=== PATIENT | male | born 1970 | race Caucasian/White ===

== ENCOUNTER 2017-12-06 10:25 | Day surgery (SDC) | payer MEDICAID, OTHER ==
[~2017-12-06] VITALS: Ht 185.4 cm; Wt 106.1 kg
--- NOTE | 2017-12-06 10:39 | ED Chest Pain ---
General Chief Complaint: Chest Pain Stated Complaint: CP Source: patient Exam Limitations: no limitations History of Present Illness Date Seen by Provider: Dec 06, 2017 Time Seen by Provider: 10:38 Initial Comments Ambulatory to ER with reports of chest pain. He is not currently having chest pain but he did have chest pain this morning. He was seen at his primary care provider's office, Dr. Gaffney who referred him here. He was given [address] Gaffney's office. He's been having chest pain for about one week. He associated with activity. Yesterday while running the [place] he had chest pain described as chest tightness and hard to breathe. He had to quit running the [place] because of the chest pain. He also has chest pain with walking or physical exertion. He has no known history of coronary artery disease. He is a diabetic. He is a smoker. Timing/Duration: intermittent Severity/Quality: tightness Location: central Radiation: no radiation Activities at Onset: none Allergies and Home Medications Allergies Coded Allergies: No Known Drug Allergies (Unverified , 12/06/17) Home Medications Unable to Obtain Active Prescriptions or Reported Meds Patient Home Medication List Home Medication List Reviewed: Yes Review of Systems Constitutional: see HPI EENTM: No Symptoms Reported Respiratory: No Symptoms Reported Cardiovascular: See HPI, Chest Pain Gastrointestinal: No Symptoms Reported Genitourinary: No Symptoms Reported (() Musculoskeletal: no symptoms reported Skin: no symptoms reported Psychiatric/Neurological: No Symptoms Reported Endocrine: No Symptoms Reported Past Hsmuszp-Vchwhl-Letazk Hx Patient Social History Recent Foreign Travel: No Contact w/Someone Who Travel: No Physical Exam Vital Signs Vital Signs - First Documented 12/06/17 12/06/17 10:30 10:35 Temp 98.0 Pulse 74 Resp 20 B/P (MAP) 110/59 (76) Pulse Ox 98 O2 Delivery Room Air Capillary Refill : General Appearance: No Apparent Distress, WD/WN, Other (Denies chest pain at this time though he is ashen and diaphoretic. While I was in the room examining the patient he did have a 4.5 half second pause. Blood pressure is adequate at 108/44, this was brief, heart rate increased to 61.) HEENT: PERRL/EOMI, TMs Normal Neck: Full Range of Motion, Normal Inspection Respiratory: Normal Breath Sounds, No Accessory Muscle Use, No Respiratory Distress Cardiovascular: Regular Rate, Rhythm, Normal Peripheral Pulses Gastrointestinal: Non Tender, Soft Extremity: Normal Capillary Refill, Normal Inspection Neurologic/Psychiatric: Alert, Oriented x3 Skin: Normal Color, Warm/Dry Progress/Results/Core Measures Lab Results Laboratory Tests Test 12/06/17 10:36 Range/Units White Blood Count 7.1 4.3-11.0 10^3/uL Red Blood Count 5.19 4.35-5.85 10^6/uL Hemoglobin 16.3 13.3-17.7 G/DL Hematocrit 46 40-54 % Mean Corpuscular Volume 88 80-99 FL Mean Corpuscular Hemoglobin 31 25-34 PG Mean Corpuscular Hemoglobin Concent 36 32-36 G/DL Red Cell Distribution Width 13.7 10.0-14.5 % Platelet Count 253 130-400 10^3/uL Mean Platelet Volume 10.4 7.4-10.4 FL Neutrophils (%) (Auto) 55 42-75 % Lymphocytes (%) (Auto) 32 12-44 % Monocytes (%) (Auto) 10 0-12 % Eosinophils (%) (Auto) 3 0-10 % Basophils (%) (Auto) 1 0-10 % Neutrophils # (Auto) 3.9 1.8-7.8 X 10^3 Lymphocytes # (Auto) 2.3 1.0-4.0 X 10^3 Monocytes # (Auto) 0.7 0.0-1.0 X 10^3 Eosinophils # (Auto) 0.2 0.0-0.3 10^3/uL Basophils # (Auto) 0.1 0.0-0.1 10^3/uL Prothrombin Time 13.4 12.2-14.7 SEC INR Comment 1.0 0.8-1.4 Activated Partial Thromboplast Time 30 24-35 SEC Sodium Level 139 135-145 MMOL/L Potassium Level 4.1 3.6-5.0 MMOL/L Chloride Level 105 98-107 MMOL/L Carbon Dioxide Level 25 21-32 MMOL/L Anion Gap 9 5-14 MMOL/L Blood Urea Nitrogen 8 7-18 MG/DL Creatinine 0.89 0.60-1.30 MG/DL Estimat Glomerular Filtration Rate > 60 BUN/Creatinine Ratio 9 Glucose Level 105 70-105 MG/DL Calcium Level 9.5 8.5-10.1 MG/DL Magnesium Level 2.2 1.8-2.4 MG/DL Total Bilirubin 1.0 0.1-1.0 MG/DL Aspartate Amino Transf (AST/SGOT) 31 5-34 U/L Alanine Aminotransferase (ALT/SGPT) 31 0-55 U/L Alkaline Phosphatase 60 40-136 U/L Myoglobin 87.3 10.0-92.0 NG/ML Troponin I 2.18 *H <0.30 NG/ML Total Protein 7.1 6.4-8.2 GM/DL Albumin 4.5 3.2-4.5 GM/DL My Orders Orders - AMBROSIO OCONNOR ACCOUNTING OFFICE MANAGER Cbc With Automated Diff (12/06/17 10:49) Magnesium (12/06/17 10:49) Chest 1 View, Ap/Pa Only (12/06/17 10:49) Ekg Tracing (12/06/17 10:49) Cardiac Profile 1 (12/06/17 10:49) Comprehensive Metabolic Panel (12/06/17 10:49) Myoglobin Serum (12/06/17 10:49) Protime With Inr (12/06/17 10:49) Partial Thromboplastin Time (12/06/17 10:49) O2 (12/06/17 10:49) Monitor-Rhythm Ecg Trace Only (12/06/17 10:49) Lipid Panel (12/07/17 06:00) Saline Lock/Iv-Start (12/06/17 10:49) Ns Iv 1000 Ml (Sodium Chloride 0.9%) (12/06/17 10:47) Lidocaine 1% Inj 20 Ml (Xylocaine 1% Inj (12/06/17 10:54) Midazolam Injection (Versed Injection) (12/06/17 10:54) Fentanyl Injection (Sublimaze Injection (12/06/17 10:54) Heparin (Bolus Per Protocol) (Heparin (B (12/06/17 10:54) Ns Iv 1000 Ml (Sodium Chloride 0.9%) (12/06/17 10:54) Vital Signs/I&O 12/06/17 12/06/17 10:30 10:35 Temp 98.0 Pulse 74 Resp 20 B/P (MAP) 110/59 (76) Pulse Ox 98 98 O2 Delivery Room Air Departure Communication (Admissions) 1040-I discussed with Dr. Cowan who has reviewed the EKG. Will be down to evaluate the patient and take to laboratory geneticist. Impression Primary Impression: NSTEMI (non-ST elevated myocardial infarction) Disposition: ADMITTED INPATIENT Condition: Stable Departure-Patient Inst. Referrals: ARNAUD GAFFNEY MD (PCP/Family) Primary Care Physician Scripts Unable to Obtain Active Prescriptions or Reported Meds AMBROSIO OCONNOR APRN Dec 06, 2017 10:39
[2017-12-06] MEDS ORDERED: NS IV 1000 ML 1,000 ML ONE ×2 (10:47→11:21)
[2017-12-06] MEDS ORDERED: HEParin 1000 UNIT/ML (10ML VIAL) FOR BOLUS ONE (10:54)
[2017-12-06] MEDS ORDERED: LIDOCAINE 1% INJ 20 ML 20 ML VIAL ONE (10:54)
[2017-12-06] MEDS ORDERED: fentaNYL INJECTION 100 MCG/2 ML AMP ONE (10:54)
[2017-12-06] MEDS ORDERED: MIDAZOLAM 5 MG/5 ML (VERSED) VIAL ONE (10:54)
[2017-12-06] MEDS ORDERED: NS IV 1000 ML 2,000 ML ONE (10:54)
[2017-12-06 10:55] LABS: BASOPHILS # (AUTO) 0.1 10^3/uL (0.0-0.1); BASOPHILS % (AUTO) 1 % (0-10); EOSINOPHILS # (AUTO) 0.2 10^3/uL (0.0-0.3); EOSINOPHILS % (AUTO) 3 % (0-10); HEMATOCRIT 46 % (40-54); HEMOGLOBIN 16.3 G/DL (13.3-17.7); LYMPHOCYTES # (AUTO) 2.3 X 10^3 (1.0-4.0); LYMPHOCYTES % (AUTO) 32 % (12-44); MEAN CORPUSCULAR HEMOGLOBIN 31 PG (25-34); MEAN CORPUSCULAR HGB CONC 36 G/DL (32-36); MEAN CORPUSCULAR VOLUME 88 FL (80-99); MEAN PLATELET VOLUME 10.4 FL (7.4-10.4); MONOCYTES # (AUTO) 0.7 X 10^3 (0.0-1.0); MONOCYTES % (AUTO) 10 % (0-12); NEUTROPHILS # (AUTO) 3.9 X 10^3 (1.8-7.8); NEUTROPHILS % (AUTO) 55 % (42-75); PLATELET COUNT 253 10^3/uL (130-400); RED BLOOD COUNT 5.19 10^6/uL (4.35-5.85); RED CELL DISTRIBUTION WIDTH 13.7 % (10.0-14.5); WHITE BLOOD COUNT 7.1 10^3/uL (4.3-11.0)
[2017-12-06 11:05] LABS: PROTHROMBIN TIME PATIENT 13.4 SEC (12.2-14.7)
[2017-12-06 11:09] LABS: ALANINE AMINOTRANSFERASE 31 U/L (0-55); ALBUMIN 4.5 GM/DL (3.2-4.5); ALKALINE PHOSPHATASE 60 U/L (40-136); BUN/CREATININE RATIO 9; CALCIUM 9.5 MG/DL (8.5-10.1); CARBON DIOXIDE 25 MMOL/L (21-32); CHLORIDE 105 MMOL/L (98-107); CREATININE SERUM 0.89 MG/DL (0.60-1.30); GFR ESTIMATED > 60; GLUCOSE 105 MG/DL (70-105); MAGNESIUM 2.2 MG/DL (1.8-2.4); POTASSIUM 4.1 MMOL/L (3.6-5.0); SODIUM 139 MMOL/L (135-145); TOTAL PROTEIN 7.1 GM/DL (6.4-8.2)
--- NOTE | 2017-12-06 11:14 | Diagnostic Imaging Report ---
PATIENT HISTORY: Chest pain. TECHNIQUE: Single frontal view of the chest COMPARISON: None FINDINGS: Lung volumes are mildly low. No focal consolidation is seen. There is no pleural effusion or pneumothorax. The cardiac silhouette is normal in size. Defibrillator pads overlie the chest. No acute osseous abnormality is seen. IMPRESSION: 1. No acute pulmonary abnormality. Dictated by: Dictated on workstation # [id number]
[2017-12-06 11:15] LABS: MYOGLOBIN SERUM 87.3 NG/ML (10.0-92.0)
--- NOTE | 2017-12-06 11:25 | Cardiology History & Physical ---
HPI-Cardiology Cardiology Consultation Date of Consultation 12/06/17 Date of Admission Time Seen by Provider: 11:21 Indication: chest pain HPI 46 years old gentleman with history of hypertension, hyperlipidemia and tobaccoism, was in his usual state of health until about a week ago when he started having chest pain with exertion, progressed to the point that he had chest pain with minimal exertion, he was seen by his medical doctor today and referred to the emergency room. In the emergency room he was noted to have T- wave inversion, did not have active chest pain but had multiple sinus pauses and bradycardia and he was slightly diaphoretic during the episode. Admit having shortness of breath on exertion which has been worsening, usually associated with the chest pain. No palpitation, no syncope. Admit having dizziness. Still an active smoker PMH-Cardiology Seasonal Allergies Seasonal Allergies: No Surgeries Yes (HERNIA) Respiratory No Cardiovascular No Neurological No Genitourinary No Gastrointestinal No Musculoskeletal No Endocrine No HEENT No Cancer No Psychosocial No Blood Transfusions No Other PMHx Past medical history as discussed below Social History Patient Social History Marrital Status: Alcohol Use: Past History Recreational Drug Use: No Smoking: Current every day smoker Recent Foreign Travel: No Contact w/other who traveled: No Recent Infectious Disease Expo: No Family Hx Other History of heart disease ROS-Cardiology Review of Systems General: No Chills, No Night Sweats, No Fatigue, No Malaise, No Appetite HEENT: No Head Aches, No Visual Changes, No Eye Pain, No Ear Pain, No Dysphasia , No Sinus Congestion, No Post Nasal Drip, No Sore Throat Pulmonary: Dyspnea; No Cough, No Pleuritic Chest Pain Cardiovascular: Chest Pain; No: Palpitations, Orthopnea, Paroxysmal Noc. Dyspnea, Edema, Lt Headedness Gastrointestinal: No: Nausea, Vomiting, Abdominal Pain, Diarrhea, Constipation , Melena, Hematochezia Genitourinary: No Dysuria, No Frequency, No Incontinence, No Hematuria, No Retention Musculoskeletal: No: neck pain, shoulder pain, arm pain, back pain, hand pain, leg pain, foot pain Neurological: No: Weakness, Numbness, Incoordination, Change in speech, Confusion, Seizures Home Medications & Allergies Allergies: Coded Allergies: No Known Drug Allergies (Unverified , 12/06/17) Home Medication List Reviewed: Yes Exam-Cardiology Vital Signs Vital Signs Date Time Temp Pulse Resp B/P (MAP) Pulse Ox O2 Delivery O2 Flow Rate FiO2 12/06/17 10:35 98.0 74 20 110/59 (76) 98 12/06/17 10:30 Room Air Exam General Appearance: Alert, Oriented X3, Cooperative, No Acute Distress HEENT: Atraumatic, PERRLA Respiratory: Clear to Auscultation, Normal Air Movement Cardiovascular: Regular Rate, Normal S1, Normal S2, No Murmurs Abdominal: Normal Bowel Sounds, Soft, No Tenderness, No Hepatosplenomegaly, No Masses Extremities: No Clubbing, No Cyanosis, No Edema, Normal Pulses, No Tenderness/ Swelling Skin: No Rashes, No Breakdown, No Significant Lesion Neuro: Normal Gait, Normal Speech, Strength at 5/5 X4 Ext, Normal Tone, Sensation Intact Psych/Mental Status: Mental Status NL, Mood NL Results Labs Labs Laboratory Tests 12/06/17 10:36: White Blood Count 7.1, Red Blood Count 5.19, Hemoglobin 16.3, Hematocrit 46, Mean Corpuscular Volume 88, Mean Corpuscular Hemoglobin 31, Mean Corpuscular Hemoglobin Concent 36, Red Cell Distribution Width 13.7, Platelet Count 253, Mean Platelet Volume 10.4, Neutrophils (%) (Auto) 55, Lymphocytes (%) (Auto) 32 , Monocytes (%) (Auto) 10, Eosinophils (%) (Auto) 3, Basophils (%) (Auto) 1, Neutrophils # (Auto) 3.9, Lymphocytes # (Auto) 2.3, Monocytes # (Auto) 0.7, Eosinophils # (Auto) 0.2, Basophils # (Auto) 0.1, Prothrombin Time 13.4, INR Comment 1.0, Activated Partial Thromboplast Time 30, Sodium Level 139, Potassium Level 4.1, Chloride Level 105, Carbon Dioxide Level 25, Anion Gap 9, Blood Urea Nitrogen 8, Creatinine 0.89, Estimat Glomerular Filtration Rate > 60 , BUN/Creatinine Ratio 9, Glucose Level 105, Calcium Level 9.5, Magnesium Level 2.2, Total Bilirubin 1.0, Aspartate Amino Transf (AST/SGOT) 31, Alanine Aminotransferase (ALT/SGPT) 31, Alkaline Phosphatase 60, Myoglobin 87.3, Troponin I 2.18*H, Total Protein 7.1, Albumin 4.5 A/P-Cardiology Admission Diagnosis Non-ST elevation myocardial infarction Coronary artery disease Sick sinus syndrome with sinus bradycardia Hypertension Hyperlipidemia Diabetes mellitus Tobaccoism Admission Status: Observation Assessment/Plan Non-ST elevation microinfarction, has T-wave inversion, poor elevation myoglobin is back to normal. Planning to proceed with cardiac catheterization Sick sinus syndrome, multiple sinus pauses and sinus bradycardia. Was asymptomatic during the episodes. Continue to monitor. Would not tolerate beta blockers at this time Hypertension, monitor blood pressure Hyperlipidemia, evaluate lipid profile Diabetes mellitus, followed and managed by primary care physician Tobaccoism, educated on smoking cessation History of alcohol use, stopped using alcohol History of illicit drug use. Stopped using about 3 years ago PAYAL FALCON MD Dec 06, 2017 11:25
--- NOTE | 2017-12-06 11:25 | Cardiac Procedure Note-CS/ASA ---
Pre-Procedure Note Pre-Op Procedure Note H&P Reviewed The H&P was reviewed, patient examined and no changes noted. Date H&P Reviewed: Dec 06, 2017 Time H&P Reviewed: 11:25 Conscious Sedation Pre-Proced Time Reviewed: 11:25 ASA Class: 3 Airway Mallampati Classification: (rincon appropriate class) I. II. III, IV Lungs Heart ASA score ASA 1: a normal healthy patient ASA 2: a patient with a mild systemic disease (mid diabetes, controlled hypertension, obesity x ASA 3: a patient with a severe systemic disease that limits activity (angina , COPD, prior Myocardial infarction) ASA 4: a patient with an incapacitating disease that is a constant threat to life (CHF, renal failure) ASA 5: a moribund patient not expected to survive 24 hrs. (ruptured aneurysm) ASA 6: a declared brain patient whose organs are being harvested. For emergent operations, add the letter E after the classification Grade 3 Sedation Plan: Analgesia, Amnesia, Plan communicated to team members, Discussed options with patient/fam, Discussed risks with patient/fam Note The patient is an appropriate candidate to undergo the planned procedure, sedation, and anesthesia. The patient immediately re-assessed prior to indication. PAYAL FALCON MD Dec 06, 2017 11:25
[2017-12-06] MEDS ORDERED: NS IV 1000 ML 1,000 ML IV SCH (12:01)
[2017-12-06] MEDS ORDERED: PATIENT MAY USE OWN MEDS, ALL PO SCH (12:15)
--- NOTE | 2017-12-06 12:24 | Cardiac Cath Report ---
Cardiac Cath Report Physician (s)/Vessel Traffic Officer (s) Physician PAYAL FALCON MD Pre-Procedure Diagnosis Pre-Procedure Diagnosis: Non-ST elevation myocardial infarction Post-Procedure Note Procedure Start Date: Dec 06, 2017 Name of Procedure: Left heart catheterization Aortic arch angiogram Findings/Procedure Note PROCEDURE NOTE: After explaining the procedure to the patient, all pros and cons were explained , all questions were answered. The patient signed the consent and then he was placed on the cardiac catheterization laboratory. Groin was prepped SL fashion local anesthesia was used. Sheath placed in the right femoral artery. Taurus right and left catheter were used to access the coronary system. Pigtail was used to access the left ventricular cavity. Left ventriculogram was done Aortic arch angiogram was done At the end of the procedure the sheath was removed. Closure device was used FINDINGS: Hemodynamics LV 120/18, end-diastolic pressure of 18 Aorta 123/18 mean of 52 ANATOMY: Left Main is free of obstructive disease Left Anterior Descending is totally occluded proximally getting filled by collaterals from the circumflex and right coronary artery Left Circumflex has mild disease nonobstructive disease Right Coronory Artery is subtotally occluded giving collaterals to the LAD LV Gram was done in the right anterior blood position, left ventricular is normal in size with left ventricle hypertrophy estimated ejection fraction 60 percent Aorta evaluation done with aortic arch angiogram showing normal ascending aorta and aortic arch and descending aorta and great neck vessels CONCLUSION: 1. Subacute myocardial infarction occurred about 3-4 days ago with elevated troponin and myoglobin returning to normal 2. Total occlusion of the LAD receiving collaterals from the left and right system 3. Severe stenosis of the midright coronary artery at the long segment still giving collaterals to the LAD 4. Preserved left ventricular systolic function with ejection fraction 60 percent, left ventricular hypertrophy was noted DISCUSSION AND RECOMMENDATION: Patient was noted to have some acute myocardial infarction, currently chest pain -free. Preserved left ventricular function, patient was indicating that he might be allergic to aspirin and unable to tolerate the medication. I think he will do better with a bypass surgery. I will arrange for transfer for CABG Anesthesia Type: Conscious Sedation Estimated blood loss (mL): 10 ml Contrast Amount: 74 ml Total Radiation Dose: 735 mGy Post-Procedure Diagnosis Post-operative diagnosis: Non-ST elevation myocardial infarction Coronary artery disease Sick sinus syndrome Hypertension Hyperlipidemia PAYAL FALCON MD Dec 06, 2017 12:24
[2017-12-06 12:30] VITALS: BP 122/83
[2017-12-06] MEDS ORDERED: NITROGLYCERIN 0.4 MG/PATCH (NITRO-DUR) TD ONE ×2 (12:30→12:54)
[2017-12-06] MEDS ORDERED: HEParin DRIP 25000 UNIT/500ML 500 ML IV ONE (12:43)
[2017-12-06 12:45] VITALS: BP 125/83
[2017-12-06 13:00] VITALS: BP 127/81
--- NOTE | 2017-12-06 13:08 | Cardiology Discharge Summary ---
Diagnosis/Chief Complaint Date of Admission December 06, 2017 Date of Discharge December 06, 2017 Admission Diagnosis Non-ST elevation myocardial infarction Coronary artery disease Sick sinus syndrome with sinus bradycardia Hypertension Hyperlipidemia Diabetes mellitus Tobaccoism Discharge Diagnosis Non-ST elevation myocardial infarction excellent coronary artery disease Sick sinus syndrome Hypertension Hyperlipidemia Chief Complaint/HPI Chief Complaint/HPI 46 years old gentleman with history of hypertension, hyperlipidemia and tobaccoism, was in his usual state of health until about a week ago when he started having chest pain with exertion, progressed to the point that he had chest pain with minimal exertion, he was seen by his medical doctor today and referred to the emergency room. In the emergency room he was noted to have T- wave inversion, did not have active chest pain but had multiple sinus pauses and bradycardia and he was slightly diaphoretic during the episode. Admit having shortness of breath on exertion which has been worsening, usually associated with the chest pain. No palpitation, no syncope. Admit having dizziness. Still an active smoker Cardiac catheterization was carried out showing two-vessel disease with preserved left ventricular function, planning to transfer for evaluation for bypass Discharge Summary Hospital Course Hospital Course Non-ST elevation microinfarction, has T-wave inversion, poor elevation myoglobin is back to normal. Heart catheterization was carried out showing total occlusion of the LAD receiving collaterals from the circumflex and right system, severe stenosis at the midright coronary artery with preserved left ventricular function. Patient expressed that he is intolerant to aspirin. He had elevated troponin, myoglobin is normal, probably his heart attack occurred 3 -4 days ago. I'll arrange for transfer for bypass surgery Sick sinus syndrome, multiple sinus pauses and sinus bradycardia. Was asymptomatic during the episodes. Continue to monitor. Would not tolerate beta blockers at this time Hypertension, monitor blood pressure Hyperlipidemia, evaluate lipid profile Diabetes mellitus, followed and managed by primary care physician Tobaccoism, educated on smoking cessation History of alcohol use, stopped using alcohol History of illicit drug use. Stopped using about 3 years ago Labs Laboratory Tests 12/06/17 10:36: Troponin I 2.18*H Procedures None. Discharge Physical Examination Allergies: Coded Allergies: No Known Drug Allergies (Unverified , 12/06/17) Vitals & I&Os Vital Signs Date Time Temp Pulse Resp B/P (MAP) Pulse Ox O2 Delivery O2 Flow Rate FiO2 12/06/17 11:20 98.0 74 20 110/59 (76) 98 Room Air General Appearance: Alert, Oriented X3, Cooperative, No Acute Distress HEENT: Atraumatic, PERRLA Respiratory: Clear to Auscultation, Normal Air Movement Cardiovascular: Regular Rate, Normal S1, Normal S2, No Murmurs Abdominal: Normal Bowel Sounds, Soft, No Tenderness, No Hepatosplenomegaly, No Masses Extremities: No Clubbing, No Cyanosis, No Edema, Normal Pulses, No Tenderness/ Swelling Skin: No Rashes, No Breakdown, No Significant Lesion Neuro: Normal Gait, Normal Speech, Strength at 5/5 X4 Ext, Normal Tone, Sensation Intact, Cranial Nerves 3-12 NL, Reflexes 2+ Psych/Mental Status: Mental Status NL, Mood NL Discharge Home Medications Reviewed and agree with Discharge Medication list on patient's Discharge Instruction sheet Instructions to Patient/Family Please see electronic discharge instructions given to patient. PAYAL FALCON MD Dec 06, 2017 1:08 pm
[2017-12-06] MEDS ORDERED: NITROGLYCERINE PATCH REMOVAL TP SCH (21:00)
[2017-12-06] MEDS ORDERED: ATORVASTATIN 80 MG (LIPITOR) TABLET PO SCH (21:00)
[2017-12-07] MEDS ORDERED: ASPIRIN E.C. 81 MG (ECOTRIN) TAB PO SCH ×2 (09:00)
== END 2017-12-06 13:20 | disposition short-term general hospital (02) ==
LOC: EDUNIT# 10:25 → ER 10:29 → CATH 11:03 → ICU 12:29 → CATH 13:20
PROVIDERS: ATTEND Internal Medicine Cardiovascular Disease
DX: I21.4 Non-ST elevation (NSTEMI) myocardial infarction (principal); I25.10 Atherosclerotic heart disease of native coronary artery without angina pectoris; I49.5 Sick sinus syndrome; I10 Essential (primary) hypertension; E78.5 Hyperlipidemia, unspecified; E11.9 Type 2 diabetes mellitus without complications; F17.210 Nicotine dependence, cigarettes, uncomplicated; F10.21 Alcohol dependence, in remission; F19.21 Other psychoactive substance dependence, in remission
CPT/HCPCS: 36221; 36415; 71045; 80053; 83735; 83874; 84484; 85025; 85610; 85730; 93005; 93041; 93458; 96360; 99291

== ENCOUNTER → 2019-03-25 | Outpatient (CLI) | payer MEDICAID ==
[~2019-03-25] MED LIST: CATHETER FLUSH 10 ML SYR IV PRN; REGADENOSON 0.4 MG/5 ML SYR (LEXISCAN) IV ONE
[2019-03-25 10:42] VITALS: BP 150/77
--- NOTE | 2019-03-25 15:39 | STRESS TEST ---
DATE OF SERVICE: 03/25/2019 LEXISCAN MYOVIEW STRESS TEST REPORT REFERRING PHYSICIAN: Dr. Gaffney. Baseline heart rate is 61. Baseline blood pressure is 144/86. Baseline EKG is sinus rhythm with no ischemic changes. In summary, the patient was injected with 9.87 mCi of technetium-99 Myoview and the resting images were obtained. Then, the patient started exercising with a baseline heart rate, blood pressure and EKG mentioned above. At minute 6 and 15 seconds, the patient was unable to perform any further, achieved maximum heart rate of 127, which is 74% of maximum expected heart rate. Test was terminated and converted to Lexiscan Myoview stress test. The patient was injected with 0.4 mg of Lexiscan, followed by 30.4 mCi of technetium-99 Myoview. Throughout the test, there were no EKG changes. The resting and stress images were reviewed and compared in the short axis, horizontal long axis, and vertical long axis views. Review of the images showed diaphragmatic attenuation with mild decreased uptake at the mid to apical inferior wall and inferolateral wall with subtle reversibility. SSS is 7, SDS 5, TID value 1.0. On the gated images, the left ventricle appeared to be in normal size with normal contractility. Calculated ejection fraction 56%. CONCLUSION: 1. The patient was unable to exercise beyond 6 minutes and 15 seconds on standard Forrest protocol, achieving 74% of maximum expected heart rate. Test was terminated and converted to Lexiscan Myoview stress test and the patient tolerated it well. 2. Minimal nondiagnostic EKG changes. 3. Diaphragmatic attenuation with decreased uptake at the mid to apical inferior wall and inferolateral wall with mild reversibility. 4. Normal left ventricular size with mild hypokinesia at the inferior wall with otherwise normal contractility. Calculated ejection fraction 56%. Job ID: [id number] DocumentID: [id number] Dictated Date: 03/25/2019 13:18:48 Shipping Lead Date: 03/25/2019 15:38:37 Dictated By: PAYAL FALCON MD
== END ==
LOC: CARD 08:09
PROVIDERS: ATTEND Internal Medicine Cardiovascular Disease
DX: I25.10 Atherosclerotic heart disease of native coronary artery without angina pectoris (principal); I11.9 Hypertensive heart disease without heart failure; E78.2 Mixed hyperlipidemia; E11.9 Type 2 diabetes mellitus without complications; Z72.0 Tobacco use
CPT/HCPCS: 78452; 93017; 93306

== ENCOUNTER 2019-09-26 20:57 | Emergency (ER) | payer MEDICAID ==
[~2019-09-26] VITALS: Ht 185 cm; Wt 111.4 kg
--- NOTE | 2019-09-26 21:45 | Diagnostic Imaging Report ---
INDICATION: Right foot pain. EXAMINATION: AP, oblique and lateral views of the right foot were obtained, at 0942 p.m. FINDINGS: There is an acute fracture of the base of the 5th metatarsal. This is actually better visualized on the ankle views than on the foot series. No other acute finding is seen. There is posterior calcaneal spurring. IMPRESSION: Acute nondisplaced fracture of base of 5th metatarsal. This is actually better visualized on the ankle views than on the foot series. No other acute finding. Dictated by: Dictated on workstation # [id number]
--- NOTE | 2019-09-26 21:46 | Diagnostic Imaging Report ---
INDICATION: Right ankle pain post injury. EXAMINATION: AP, oblique and lateral views of the right ankle were obtained. FINDINGS: The ankle joint appears intact. There is a linear lucency in the base of the 5th metatarsal suspicious for a nondisplaced fracture. This is actually better visualized on the ankle series than on the foot series. There is posterior calcaneal spurring. IMPRESSION: Acute nondisplaced fracture of the 5th metatarsal base. Remaining bony structures show no acute finding. Dictated by: Dictated on workstation # [id number]
--- NOTE | 2019-09-26 21:52 | ED Lower Extremity ---
General Chief Complaint: Lower Extremity Stated Complaint: RIGHT FOOT INJURY Nursing Triage Note: Pt to FT1 via WC with c/o right foot pain after slipping earlier today around 1030. Pt states he slipped in some rocío and grabbed his door handle to break his fall and his right foot twisted inward. Pt foot is swollen on arrival. 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 Pt states a shooting pain goes up right leg when pressure is applied. Nursing Sepsis Screen: No Definite Risk History of Present Illness Date Seen by Provider: Sep 26, 2019 Time Seen by Provider: 21:20 Initial Comments 48-year-old male presents for right foot pain on the lateral aspect after twisting his ankle in the thoughts. He denies any previous injuries to his right ankle or foot. He has not had any medication for the pain or swelling. no Other injuries. Onset: this afternoon Pain/Injury Location: right foot Method of Injury: twisted Allergies and Home Medications Allergies Coded Allergies: Penicillins (Verified Allergy, Severe, Anaphylaxis, 03/25/19) Patient Home Medication List Home Medication List Reviewed: Yes Review of Systems Constitutional: no symptoms reported, see HPI Musculoskeletal: see HPI, joint pain (fifth metatarsal) All Other Systems Reviewed Negative Unless Noted: Yes Past Ipinqwi-Udfgro-Ceaeja Hx Past Med/Social Hx: Reviewed Nursing Past Med/Soc Hx Patient Social History Alcohol Use: Past History Alcohol Beverage of Choice: Beer Recreational Drug Use: No Smoking Status: Current Everyday Smoker Type Used: Cigarettes 2nd Hand Smoke Exposure: Yes Recent Foreign Travel: No Contact w/Someone Who Travel: No Recent Infectious Disease Expo: No Recent Hopitalizations: No Physical Abuse: No Sexual Abuse: No Mistreated: No Fear: No Seasonal Allergies Seasonal Allergies: No Past Medical History Surgeries: Yes (HERNIA, 4 cardiac stents ) Coronary Stent, Gallbladder Respiratory: No Cardiac: Yes Hypertension Neurological: No Genitourinary: No Gastrointestinal: No Musculoskeletal: No Endocrine: Yes Diabetes, Insulin dep HEENT: No Cancer: No Psychosocial: No Integumentary: No Blood Disorders: No Physical Exam Vital Signs Vital Signs - First Documented 09/26/19 21:12 Temp 37.2 Pulse 85 Resp 20 B/P (MAP) 137/92 (107) Pulse Ox 98 O2 Delivery Room Air Capillary Refill : Less Than 3 Seconds Height, Weight, BMI Height: 6'1.00" Weight: 234lbs. 0oz. 106.883136ln; 32.00 BMI Method:Stated General Appearance: WD/WN, no apparent distress Cardiovascular: normal peripheral pulses, regular rate, rhythm, no murmur Respiratory: chest non-tender, lungs clear, normal breath sounds Ankles: right ankle non-tender, right ankle limited range of motion (secondary to pain.), right ankle swelling Feet: right foot bone tenderness (proximal fifth metatarsal), right foot limited range of motion, right foot pain, right foot swelling Neurologic/Psychiatric: no motor/sensory deficits, alert, normal mood/affect, oriented x 3 Progress/Results/Core Measures Results/Orders My Orders Orders - ANA PEARCE Foot, Right, 3 View (09/26/19 21:22) Ankle, Right, 3 Views (09/26/19 21:23) Vital Signs/I&O 09/26/19 21:12 Temp 37.2 Pulse 85 Resp 20 B/P (MAP) 137/92 (107) Pulse Ox 98 O2 Delivery Room Air Blood Pressure Mean: 107 Progress Progress Note : Time: 21:20 Progress Note Patient seen and evaluated, will obtain x-ray of the right ankle and foot. Ice pack applied to right foot. Patient declined any need for pain medication. 2144 Yusef wrap and rehabilitation shoe applied to right foot. X-ray results and plan of care discussed with the patient. Discharge instructions and return precautions explained. Patient reports having Percocet at home and he'll use pain medication as needed Diagnostic Imaging Diagonstic Imaging: Xray Plain Films/CT/US/NM/MRI: ankle Comments [facility] [place] NAME: FABIOLA CASTRO [facility] REC#: [id number] PT STATUS: REG ER : 1970 PHYSICIAN: ANA PEARCE ADMIT DATE: 09/26/19/ER Signed Date of Exam:09/26/19 ANKLE, RIGHT, 3 VIEWS INDICATION: Right ankle pain post injury. EXAMINATION: AP, oblique and lateral views of the right ankle were obtained. FINDINGS: The ankle joint appears intact. There is a linear lucency in the base of the 5th metatarsal suspicious for a nondisplaced fracture. This is actually better visualized on the ankle series than on the foot series. There is posterior calcaneal spurring. IMPRESSION: Acute nondisplaced fracture of the 5th metatarsal base. Remaining bony structures show no acute finding. Dictated by: Dictated on workstation # [id number] Dict: 09/26/192141 Trans: 09/26/192146 [facility] [id number] Interpreted by: PEÑA ATKINS MD Electronically signed by: PEÑA ATKINS MD 09/26/192146 Reviewed: Reviewed by Me Diagonstic Imaging: Xray Plain Films/CT/US/NM/MRI: other (foot) Comments NAME: FABIOLA CASTRO [facility] REC#: [id number] PT STATUS: REG ER : 1970 PHYSICIAN: ANA PEARCE ADMIT DATE: 09/26/19/ER Signed Date of Exam:09/26/19 FOOT, RIGHT, 3 VIEW INDICATION: Right foot pain. EXAMINATION: AP, oblique and lateral views of the right foot were obtained, at 0942 p.m. FINDINGS: There is an acute fracture of the base of the 5th metatarsal. This is actually better visualized on the ankle views than on the foot series. No other acute finding is seen. There is posterior calcaneal spurring. IMPRESSION: Acute nondisplaced fracture of base of 5th metatarsal. This is actually better visualized on the ankle views than on the foot series. No other acute finding. Dictated by: Dictated on workstation # [id number] Dict: 09/26/192140 Trans: 09/26/192146 [facility] [id number] Interpreted by: PEÑA ATKINS MD Electronically signed by: PEÑA ATKINS MD 09/26/192146 Reviewed: Reviewed by Me Departure Impression Primary Impression: Fracture of fifth metatarsal bone of right foot Qualified Codes: S92.354A - Nondisplaced fracture of fifth metatarsal bone, right foot, initial encounter for closed fracture Disposition: 01 HOME, SELF-CARE Condition: Improved Departure-Patient Inst. Decision time for Depature: 21:45 Referrals: LINDA LUNDY MD (PCP/Family) Primary Care Physician Patient Instructions: Foot Fracture (DC) Add. Discharge Instructions: Ice and elevate your right foot for 20 minutes every 2 hours while awake. Use Yusef wrap and rehabilitation shoe. Follow-up with your primary care provider or orthopedics in 5-10 days. Advance activity as tolerated. Use pain medication you have at home every 6-8 hours as needed. Return to the emergency department for new, urgent health care needs. All discharge instructions reviewed with patient and/or family. Voiced understanding. Copy Copies To 1: LINDA LUNDY MD, AMY ARNP Sep 26, 2019 21:52
[2019-09-26 22:10] VITALS: BP 137/92
== END 2019-09-26 22:10 | disposition home or self-care (01) ==
LOC: EDUNIT# 20:57 → ER 20:59
DX: S92.354A Nondisplaced fracture of fifth metatarsal bone, right foot, initial encounter for closed fracture (principal); F17.210 Nicotine dependence, cigarettes, uncomplicated; Z95.5 Presence of coronary angioplasty implant and graft; Z88.0 Allergy status to penicillin; X50.1XXA Overexertion from prolonged static or awkward postures, initial encounter
CPT/HCPCS: 73610; 73630

== ENCOUNTER 2022-12-01 14:53 | Emergency (ER) | payer MEDICAID ==
[2022-12-01] MEDS ORDERED: fentaNYL INJ 100 MCG/2 ML AMP IVP ONE (16:00)
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
[2022-12-01 16:13] LABS: BASOPHILS % (AUTO) 0 % (0-10); EOSINOPHILS # (AUTO) 0.3 10^3/uL (0.0-0.3); EOSINOPHILS % (AUTO) 3 % (0-10); HEMATOCRIT 44 % (40-54); HEMOGLOBIN 15.2 g/dL (13.3-17.7); LYMPHOCYTES # (AUTO) 2.5 X 10^3 (1.0-4.0); LYMPHOCYTES % (AUTO) 27 % (12-44); MEAN CORPUSCULAR HEMOGLOBIN 32 pg (25-34); MEAN CORPUSCULAR HGB CONC 35 g/dL (32-36); MEAN CORPUSCULAR VOLUME 91 fL (80-99); MEAN PLATELET VOLUME 8.9 fL (9.0-12.2); MONOCYTES # (AUTO) 0.7 X 10^3 (0.0-1.0); MONOCYTES % (AUTO) 7 % (0-12); NEUTROPHILS # (AUTO) 5.9 X 10^3 (1.8-7.8); NEUTROPHILS % (AUTO) 63 % (42-75); PLATELET COUNT 314 10^3/uL (130-400); WHITE BLOOD COUNT 9.4 10^3/uL (4.3-11.0)
[2022-12-01] MEDS ORDERED: NS IV 1000 ML 1,000 ML IV SCH (16:30)
[2022-12-01] MEDS ORDERED: IOHEXOL 350 MG/ML 100 ML (OMNIPAQUE 350) VIAL IV ONE (16:30)
[2022-12-01] MEDS ORDERED: HOLD METFORMIN - RECEIVED CONTRAST 20 ML VIAL IV SCH (16:30)
[2022-12-01] MEDS ORDERED: NS 100 ML (IVPB) BAG IV ONE (16:30)
[2022-12-01 16:34] LABS: BILIRUBIN,URINE NEGATIVE (NEGATIVE); CLARITY,URINE CLEAR; COLOR,URINE YELLOW; GLUCOSE, URINE (UA) 1+ (NEGATIVE); KETONES,URINE NEGATIVE (NEGATIVE); LEUKOCYTE ESTERASE ,URINE NEGATIVE (NEGATIVE); NITRITE,URINE NEGATIVE (NEGATIVE); PROTEIN,URINE NEGATIVE (NEGATIVE)
[2022-12-01 16:44] LABS: BACTERIA,URINE NEGATIVE /HPF; WBC,URINE RARE /HPF
--- NOTE | 2022-12-01 16:58 | Diagnostic Imaging Report ---
PROCEDURE: CT abdomen and pelvis with contrast. TECHNIQUE: Multiple contiguous axial images were obtained through the abdomen and pelvis after administration of intravenous contrast. Auto Exposure Controls were utilized during the CT exam to meet ALARA standards for radiation dose reduction. All CT scans use one or more of the following dose optimizing techniques: automated exposure control, MA and/or KvP adjustment based on patient size and exam type or iterative reconstruction. INDICATION: Lower abdominal pain. COMPARISON: No prior study is available for comparison. FINDINGS: The lung bases are clear. The liver is unremarkable. Gallbladder is surgically absent. There is no biliary ductal dilatation. Pancreas and spleen are unremarkable. No adrenal mass is identified. Kidneys are unremarkable. There is no hydronephrosis. Aorta is heavily calcified but nonaneurysmal. There is diverticulosis of the descending and sigmoid colon but no definite finding to suggest acute diverticulitis is seen. The appendix is visualized in the right pelvis and appears unremarkable. There are some dilated and fluid-filled small bowel loops in the upper abdomen. There do appear to be some decompressed normal caliber small bowel loops in the right abdomen and features are concerning for small bowel obstruction. No free fluid or fluid collection is seen. There is no free air. The bladder and prostate are unremarkable. IMPRESSION: 1. Dilated fluid-filled small bowel loops with transition to normal caliber small bowel in the right abdomen concerning for small bowel obstruction. Small bowel study may be useful for further evaluation. 2. Uncomplicated diverticulosis. Dictated by: Dictated on workstation # [id number]
[2022-12-01 17:03] LABS: ALBUMIN 4.1 GM/DL (3.2-4.5); POTASSIUM 4.1 MMOL/L (3.6-5.0)
[2022-12-01 17:04] LABS: CALCIUM 9.3 MG/DL (8.5-10.1)
[2022-12-01 17:05] LABS: TOTAL PROTEIN 7.1 GM/DL (6.4-8.2)
[2022-12-01 17:07] LABS: BILIRUBIN,TOTAL 0.3 MG/DL (0.1-1.0)
[2022-12-01 17:09] LABS: CREATININE SERUM 0.77 MG/DL (0.60-1.30)
[2022-12-01] MEDS ORDERED: HYDROmorphone 2 MG/ML VIAL (DILAUDID) IV ONE (18:00)
[2022-12-01] MEDS ORDERED: metroNIDAZOLE 500 MG (FLAGYL) TAB PO ONE (18:00)
[2022-12-01] MEDS ORDERED: CIPROFLOXACIN 500 MG (CIPRO) TABLET PO ONE (18:00)
[2022-12-01] MEDS ORDERED: CIPR500T5 PO (18:03)
[2022-12-01] MEDS ORDERED: METR-145 PO (18:03)
[2022-12-01] MEDS ORDERED: TRM50T PO (18:03)
[2022-12-01 18:33] VITALS: BP 112/87
== END 2022-12-01 18:34 | disposition home or self-care (01) ==
LOC: EDUNIT# 14:53 → ER 14:59
DX: K64.8 Other hemorrhoids (principal); R19.7 Diarrhea, unspecified; K63.89 Other specified diseases of intestine; E11.9 Type 2 diabetes mellitus without complications; Z79.4 Long term (current) use of insulin; Z98.890 Other specified postprocedural states; Z88.0 Allergy status to penicillin
CPT/HCPCS: 36415; 74177; 80053; 81000; 82150; 83690; 85025